=== PATIENT | female | born 1965 | race Caucasian/White ===

== ENCOUNTER 2021-03-12 13:56 | Outpatient (CLI) | payer MEDICARE, MEDICAID, SELFPAY ==
--- NOTE | 2021-03-12 | ECHO_ITS ---
Patient Info Name: Jackie Razo Age: 56 years : 1965 Gender: Female Ht: 59 in Wt: 230 lbs BSA: 2.15 m2 HR: 97 bpm BP: 140 / 90 mmHg Heart Rhythm: Sinus Rhythm Technical Quality: Good Exam Date: 03/12/2021 2:44 PM Exam Location: [facility] Pulmonary Patient Status: Outpatient Admit Date: 03/12/2021 Staff Ordering Physician: Viridiana, Alaina GAMEZ Anatomic Pathology Assistant: Ashley Hernandez RDCS Attending Provider: Briana, Alaina GAMEZ Exam Type: CA echo doppler color flow Study Info Indications - [place] Complete two-dimensional, color flow and Doppler transthoracic echocardiogram is performed. Summary 1. Complete two-dimensional, color flow and Doppler transthoracic echocardiogram is performed. 2. Left ventricular chamber dimension is normal. 3. Left ventricular systolic function is normal, estimated at 60-65%. 4. There is upper limits of normal left ventricular wall thickness. 5. The left ventricular diastolic function is grade I diastolic dysfunction. 6. There is trace tricuspid valve regurgitation. 7. No pulmonary hypertension, estimated pulmonary arterial systolic pressure is 22 mmHg. Left Ventricle Left ventricular chamber dimension is normal. Left ventricular systolic function is normal, estimated at 60-65%. There is upper limits of normal left ventricular wall thickness. The left ventricular diastolic function is grade I diastolic dysfunction. Right Ventricle Right ventricular chamber dimension is normal. Right ventricular systolic function is normal. Left Atria Left atrial chamber dimension is normal. Right Atria Right atrial chamber dimension is normal. Aortic Valve The aortic valve is trileaflet. There is no aortic valve stenosis. There is no aortic valve regurgitation. Pulmonic Valve The pulmonic valve is not well visualized. There is trace pulmonic regurgitation. Mitral Valve The mitral valve has normal leaflets. There is trace mitral valve regurgitation. The mitral valve annulus is mildly calcified. Tricuspid Valve The tricuspid valve leaflets are normal. There is trace tricuspid valve regurgitation. No pulmonary hypertension, estimated pulmonary arterial systolic pressure is 22 mmHg. Pericardium/Pleural The pericardium appears normal. There is no pericardial effusion. Inferior Vena Cava Normal inferior vena cava with >50% collapse upon inspiration consistent with normal right atrial pressure, 5 mmHg. Aorta The aortic root size at the sinus of Valsalva is normal. There is mild aortic atherosclerosis. Left Ventricular Outflow Tract Name Value Normal LVOT 2D LVOT Diameter 2.0 cm LVOT Doppler LVOT Peak Gradient 5 mmHg LVOT Mean Gradient 3 mmHg LVOT VTI 23 cm LVOT VTI/AV VTI Ratio 0.7 LVOT Stroke Volume 68 ml LVOT CO 15.7 l/min LVOT CI 7.3 l/min/m2 Pulmonic Valve
--- NOTE | 2021-03-12 15:51 | PCRCNOTE ---
PT ON SCHEDULE FOR 6 MINUTE WALK. CALLED [facility] OFFICE FOR ORDER TWICE, NO ORDER WAS RECEIVED. PT STATES SHE WAS NOT ABLE TO WALK DUE TO SEVERE KNEE PAIN AND WOULD HAVE HAD TO DECLINE TEST.
--- NOTE | 2021-03-12 17:05 | P.PCNPFT_ITS ---
PFT Procedure Performed PFT Procedure Performed Spirometry with Pre/Post Bronchodilator Plethysmography (Lung Vol) Diffusing Cap (DLCO) Flow Vol Loop PFT Interpretation This is a pulmonary function test with pre and post-bronchodilator spirometry, plethysmography and diffusing capacity. The test was performed and results interpreted in accordance with the 2019 and 2005 ATS/ERS Task Force guidelines respectively using the Global Lung Function Initiative-2012 reference equations. Patient demonstrated good effort and cooperation. Reproducibility criteria were met. The quality of the pre bronchodilator spirometry maneuver was Grade A and post bronchodilator spirometry maneuver was Grade A. Findings: Spirometry: there is decreased maximal expiratory airflow at low lung volumes with mildly concave expiratory flow tracing. The pre bronchodilator FVC is 2.61 L, 94% predicted. The pre bronchodilator FEV1 is 1.89 L, 85% predicted. The FEV1: FVC ratio 72%. The post bronchodilator FVC is 2.71 L, representing a 4% increase. The post bronchodilator FEV1 is 1.97 L, representing a 5% increase. Plethysmography: The total lung capacity is 5.08 L, 118% predicted. The functional residual capacity is 1.84 L, 77% predicted. The residual volume is 1.82 L, 111% predicted. Diffusing capacity: The absolute diffusion capacity is 17.1, 85% predicted. The diffusing capacity corrected for alveolar volume is 4.23, 89% predicted. Impression: The spirometry is normal without evidence of an obstructive abnormal ity. There is no significant improvement after inhaling a single dose of albuterol. The lung volumes are normal. The diffusing capacity is normal. Impression: There is a mild obstructive abnormality with a normal FEV1 and with slow vital capacity greater than the forced vital capacity suggesting small airways disease. There is no significant improvement after inhaling a single dose of albuterol. the lung volumes are normal. The diffusing capacity is normal. There are no prior studies for comparison
== END 2021-03-12 13:57 | disposition home or self-care (01) ==
LOC: ANHCARD 14:00
PROVIDERS: PCP Family Medicine; Visit Provider Nurse Practitioner
DX: J45.909 Unspecified asthma, uncomplicated (principal); R06.09 Other forms of dyspnea
CPT/HCPCS: 93306; 94060; 94726; 94729

== ENCOUNTER 2022-09-12 11:54 | Outpatient (CLI) | payer MEDICARE, MEDICAID, SELFPAY ==
--- NOTE | ~2022-09-12 | MMUS_ITS ---
EXAMINATION: MM diagnostic lucille BI w lucita, US breast LT limited HISTORY: Palpable lump in the upper outer quadrant of the left breast TECHNIQUE: Craniocaudal, mediolateral, and mediolateral oblique 3-D tomosynthesis images of the breas ts were performed and synthetic 2-D images were generated. CAD analysis was submitted and interpreted . High resolution limited left breast ultrasound was performed. COMPARISON: No prior mammogram is currently available for comparison at this institution BREAST PARENCHYMAL COMPOSITION: There are scattered areas of fibroglandular density. FINDINGS: MAMMOGRAPHIC FINDINGS: Left breast: No specific mass, calcification, or architectural distortion are identified in the area of the palpable abnormality. There is slightly heterogeneous attenuation of the breast with a lucent component suggesting fat necrosis. Right breast: No suspicious mass, calcification, or architectural distortion are identified to sugges t malignancy. ULTRASOUND: There is an approximately 3.7 x 1.4 cm oval, circumscribed, complex cystic and solid mass at 3:00 loc ation 9 cm from the nipple with posterior acoustic enhancement and no internal vascularity correspond ing to the palpable abnormality of concern. IMPRESSION: 1. Mammographic and sonographic findings suggestive of a resolving hematoma/trauma of the left breast corresponding to the palpable abnormality. 2. Recommend continued clinical follow-up and targeted left breast ultrasound in four weeks to assess for improvement. If persistent or worsened, ultrasound-guided biopsy would be recommended. BI-RADS category 4, suspicious findings. Reviewed, dictated and finalized at location [facility]. [facility] [employer] [employer] IMPRESSION: 1. Mammographic and sonographic findings suggestive of a resolving hematoma/tra jigar of the left breast corresponding to the palpable abnormality. 2. Recommend continued clinical follow-up and targeted left breast ultrasound i n four weeks to assess for improvement. If persistent or worsened, ultrasound-g uided biopsy would be recommended. BI-RADS category 4, suspicious findings.
== END 2022-09-12 11:55 | disposition home or self-care (01) ==
PROVIDERS: PCP Physician Assistant
DX: N63.25 Unspecified lump in the left breast, overlapping quadrants (principal); R92.8 Other abnormal and inconclusive findings on diagnostic imaging of breast
CPT/HCPCS: 76642; 77062; 77066; G0279